=== PATIENT | male | born 1935 | race Caucasian/White ===

== ENCOUNTER 2019-08-10 06:53 | Day surgery (SDC) | payer MEDICARE, BC ==
[2019-08-09 15:57] LABS: BASOPHILS # (AUTO) 0.1 X10'3 (0-0.2); BASOPHILS % (AUTO) 1.2 % (0-1); EOSINOPHILS # (AUTO) 0.7 X10'3 (0-0.9); EOSINOPHILS % (AUTO) 9.5 % (0-6); HEMATOCRIT 41.3 % (42.0-52.0); HEMOGLOBIN 14.2 g/dl (14.0-17.9); LYMPHOCYTES % (AUTO) 14.3 % (21-51); MEAN CORPUSCULAR HEMOGLOBIN 33.2 PG (27.0-31.0); MEAN CORPUSCULAR HGB CONC 34.4 g/dL (33.0-36.5); MEAN CORPUSCULAR VOLUME 96.8 FL (78-98); MEAN PLATELET VOLUME 8.8 FL (7.4-10.4); MONOCYTES # (AUTO) 0.5 X10'3 (0-0.9); MONOCYTES % (AUTO) 7.2 % (2-12); NEUTROPHILS # (AUTO) 4.8 X10'3 (1.8-7.7); NEUTROPHILS % (AUTO) 67.8 % (42-75); PLATELET COUNT 179 X10'3 (140-440); RED BLOOD COUNT 4.26 X10'6 (4.70-6.10); RED CELL DISTRIBUTION WIDTH 14.7 % (11.5-14.5); WHITE BLOOD COUNT 7.1 X10'3 (4.5-11.0)
[2019-08-09 16:03] LABS: ALBUMIN 3.5 G/DL (3.4-5.0); ANION GAP 6 (8-16); BLOOD UREA NITROGEN 29 MG/DL (7-18); BUN/CREATININE RATIO 31.5 (5.4-32.0); CALCIUM 9.2 MG/DL (8.5-10.1); CHLORIDE 99 MMOL/L (99-107); CREATININE 0.92 MG/DL (0.60-1.10); GLUCOSE 236 MG/DL (70-104); POTASSIUM 4.5 MMOL/L (3.5-5.1); SODIUM 137 MMOL/L (135-145); TOTAL CARBON DIOXIDE 31.8 MMOL/L (24-32); eGFR 78 ML/MIN
[~2019-08-10] VITALS: Ht 172.7 cm; Wt 62.6 kg
[2019-08-10] MEDS ORDERED: MIDAZolam 1mg/ml 10ml vial IV ONE (07:30)
[2019-08-10] MEDS ORDERED: morphine 10mg/ml inj. IV ONE (07:30)
[2019-08-10] MEDS ORDERED: diphenhydrAMINE 25mg capsule PO ONE (07:30)
[2019-08-10] MEDS ORDERED: LORazepam 0.5 MG tablet PO ONE (07:30)
[2019-08-10] MEDS ORDERED: atropine 0.1mg/ml 10ml syringe IV ONE (07:30)
[2019-08-10] MEDS ORDERED: amiodarone in dextrose, iso-osm 150mg/100ml bag IV ONE (07:30)
[2019-08-10] MEDS ORDERED: ALOG25TA2 PO (08:34)
[2019-08-10] MEDS ORDERED: ROSU5TAB PO (08:34)
[2019-08-10] MEDS ORDERED: NIFE-58 PO (08:34)
[2019-08-10] MEDS ORDERED: SOTA80TA PO (08:34)
[2019-08-10] MEDS ORDERED: APIX5TAB3 PO (08:34)
[2019-08-10] MEDS ORDERED: ASPI-1265 PO (08:34)
[2019-08-10] MEDS ORDERED: TEMA15CA PO (08:34)
[2019-08-10] MEDS ORDERED: INSU100V12 SQ (08:34)
[2019-08-10] MEDS ORDERED: MEMA10TA PO (08:34)
== END 2019-08-10 09:25 | disposition home or self-care (01) ==
LOC: SSTAY O 06:53 → MED 3N 06:53 → SSTAY O 09:25
PROVIDERS: ATTEND Internal Medicine Cardiovascular Disease
DX: I48.19 Other persistent atrial fibrillation (principal); Z53.8 Procedure and treatment not carried out for other reasons; I25.10 Atherosclerotic heart disease of native coronary artery without angina pectoris; I35.0 Nonrheumatic aortic (valve) stenosis; E78.5 Hyperlipidemia, unspecified; Z82.49 Family history of ischemic heart disease and other diseases of the circulatory system; E11.9 Type 2 diabetes mellitus without complications; K21.9 Gastro-esophageal reflux disease without esophagitis; Z95.1 Presence of aortocoronary bypass graft; Z86.73 Personal history of transient ischemic attack (TIA), and cerebral infarction without residual deficits; Z90.49 Acquired absence of other specified parts of digestive tract; Z98.890 Other specified postprocedural states; Z88.5 Allergy status to narcotic agent; Z87.891 Personal history of nicotine dependence; Z80.9 Family history of malignant neoplasm, unspecified; Z83.3 Family history of diabetes mellitus
CPT/HCPCS: 36415; 80048; 85025; 85610; 93005

== ENCOUNTER 2020-06-27 06:32 | Day surgery (SDC) | payer MEDICARE, BC ==
[~2020-06-27] VITALS: Ht 172.7 cm; Wt 66.2 kg
[~2020-06-27 06:32] MED LIST: ALOG25TA2 PO; APIX5TAB3 PO; ASPI-1265 PO; INSU100V12 SQ; MEMA10TA PO; NIFE-58 PO; ROSU5TAB PO; SOTA80TA PO; TEMA15CA PO
[2020-06-27] MEDS ORDERED: NOVRI SQ (07:05)
[2020-06-27] MEDS ORDERED: LISI-790 PO (07:05)
[2020-06-27 08:05] VITALS: BP 120/59
[2020-06-27] MEDS ORDERED: iohexol 300 MG/1 ML 50ml polymer ONE (08:35)
[2020-06-27 08:45] VITALS: BP 149/73
[2020-06-27 08:51] VITALS: BP 132/82
== END 2020-06-27 09:05 | disposition home or self-care (01) ==
LOC: SSTAY O 06:32
PROVIDERS: ATTEND Radiology Diagnostic Radiology
DX: Z43.1 Encounter for attention to gastrostomy (principal); Z88.5 Allergy status to narcotic agent; Z79.899 Other long term (current) drug therapy; Z79.01 Long term (current) use of anticoagulants
CPT/HCPCS: 49450; Q9967; B4087